=== PATIENT | female | born 1985 | race Caucasian/White ===

== ENCOUNTER 2017-02-11 10:24 | Emergency (ER) | payer OTHER ==
[~2017-02-11] VITALS: Ht 160 cm; Wt 50.0 kg
[~2017-02-11 10:24] MED LIST: ALPR0.5T8 PO; CARI350T PO; HYDR-4003 PO; KLO1T PO; TOPI50TA88 PO; antidepressant
[2017-02-11 10:30] VITALS: BP 108/83; PULSE 107; RESP 16; O2SAT 98
--- NOTE | 2017-02-11 11:24 | ED.REPORT ---
HPI-Extremity Problem Lower Date of Service Feb 11, 2017 ED Provider: Lucia Us History of Present Illness: need pillow and a blanket per her request. problems with left knee for a month. fall on buttocks in bedroom yesterday from standing position, carpeted floor. primary care is residency clinic. started using crutches 2 days ago for knee issues. hx of back and pelvis pain. uses naprosyn and a ticture. 03/05. pelvis area is painful Nursing Notes Stated Complaint: LOWER BACK/LT SIDE LEG PAIN Chief Complaint: Extremity Trauma Nursing Notes Reviewed: Yes Allergies: Coded Allergies: Sulfa (Sulfonamide Antibiotics) (Verified Allergy, Severe, yeast infection , 12/04/14) avocado (Verified Allergy, Severe, valdez esophagus, 12/04/14) gabapentin (Verified Allergy, Severe, blurry vision, 12/04/14) ketorolac (Verified Allergy, Severe, makes her crazy and freak out, ) latex (Verified Allergy, Severe, states valdez like batter acid, 12/04/14) promethazine HCl (Verified Allergy, Severe, anxiety, 12/04/14) azithromycin (Verified Allergy, Mild, GI INTOLERANCE WITH PO DOSING, ) Penicillins (Verified Allergy, Unknown, rash, 12/04/14) erythromycin ethylsuccinate (Verified Allergy, Unknown, UNKNOWN, 12/04/14) ondansetron (Verified Adverse Reaction, Intermediate, MAKES ME UNEASY, WANT TO FREAK OUT, 02/11/17) Uncoded Allergies: Nonsteroidal Anti-Inflammatory Agts (Allergy, Unknown, UNKNOWN, 02/01/13) Scheduled Topiramate (Topiramate) 50 Mg Tablet 150 MG PO DAILY Scheduled PRN Alprazolam (Alprazolam) 0.5 Mg Tablet 0.5 MG PO TID PRN PRN For Anxiety Carisoprodol (Soma) 350 Mg Tablet 350 MG PO TID PRN PRN For Spasm Clonazepam (Clonazepam) 1 Mg Tab 1-2 MG PO BID PRN PRN For Anxiety Hydrocodone-Acetaminophen 5-325 mg (Hydrocodone-Acetaminophen 5-325 mg) 1 Each Tablet 1-2 TABLET PO TID PRN PRN For Pain Miscellaneous Medications ([antidepressant]) General Time Seen by MD: 11:22 Chief Complaint Other (pelvis pain) Hx Obtained From: Patient Onset Occurred: Yesterday Symptom Duration: Since onset Caused by: Accidental Past Medical History Past Medical History Notes: Chronic pain Past Medical History Grave's Disease no clear GI diagnoses (IBS or Crohn's) Anxiety Hypoglycemic cervical dysplasia heart murmur Reports: Transient ischemic attack Past Surgical History colonoscopy, hernia times 3, 2 laps, shoulder Reports: Appendectomy, (times 2), Hysterectomy, Tonsillectomy Family History noncontributory Smoking History Current Every Day Smoker (1/2 pack a day for 15 years) Social History Alcohol Use: "Social" Drug Use: Denies drug use Other Social History: Good social support, , Lives with children, Local resident 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 Ambulatory Status Independent Review of Systems Basic Review of Systems Eyes: Vision NL, No discharge : No dysuria, No frequency Psychiatric: Normal thought content Physical Exam Initial Vital Signs Vital Signs (First) Date Time Temp Pulse Resp B/P Pulse Ox O2 Delivery O2 Flow Rate FiO2 02/11/17 10:30 36.4 107 16 108/83 98 Room Air Initial VS: Reviewed, Vital signs normal General/Constitutional: Well-developed, Well-nourished Head / Eyes: Atraumatic, Normocephalic, PERRL ENT: Mucous membranes moist, Conjunctiva normal, No scleral icterus Neck: Supple, Non-tender, Full range of motion Respiratory: Breath sounds normal, Clear to auscultation, No respiratory distress Cardiovascular: Regular rate & rhythm, Heart sounds normal, Intact distal pulses Abdomen / GI: Soft, Non-tender, No guarding, No rebound, No distention Back: No CVA tenderness Lymphatic: No lymphadenopathy Upper Extremities: Vascular intact, Neuro intact, No swelling, No tenderness Skin: Warm, Dry, No cyanosis Neurologic: Alert, Oriented, Nonfocal Psychiatric: Mood/affect normal, Behavior normal, Normal thought content Lower Extremity / Pelvis / MS: Atraumatic, Inspection NL patient with hypersensitive response to light touch. Left knee with mild swelling and color changes usually associated with no movement General/Constitutional: Awake, Alert, No acute distress, Well appearing, Well developed, Well hydrated, Well nourished, Cooperative, Not toxic appearing Respiratory / Chest: Atraumatic, Breath sounds NL, Breath sounds = bilat, No respiratory distress Cardiovascular: Heart rate NL, Regular rhythm, Heart sounds NL, No gallop Interpretation & Diagnostics X-Ray Interpretation Xray Interpretation: PROCEDURE: X-RAY SACRUM AND COCCYX, MINIMUM THREE VIEWS ([id number]) INDICATIONS: fall pain TECHNIQUE: 3 views of the sacrum and coccyx acquired. COMPARISON: None. FINDINGS: Bones: No fractures or dislocations. No suspicious bony lesions. Lower lumbar discogenic changes. Soft tissues: Visualized bowel gas pattern is normal. No suspicious soft tissue densities. IMPRESSION: No fracture Dictated by: Jeronimo Christina M.D. on 02/11/2017 at 12:25 Approved by: Jeronimo Christina M.D. on 02/11/2017 at 12:28 US Soft Tissue/Musculoskeletal US is negative for any clot formation Re-Eval/Medical Decision Med Decision/Clinical Course 31 year old female presents for coccyx pain, left hip/back pain and left knee pain. Patient states the knee has been bothersome for a month with worsening of her symptoms to the paint where she started using crutches 2 days ago. She sustained a ground level fall to her buttocks yesterday in her carpeted bedroom. She presents today with hypersensitive pain response. X-ray is negative for any fracture, ultrasound is negative for any clot formation. No sign of any compartment syndrome. Discharge & Departure Impression: Primary Impression: Back pain Back pain location: low back pain Sciatica presence: with sciatica Sciatica laterality: sciatica of left side Additional Impression: Knee pain Disposition: Home Patient Instructions: Back Pain (ED), Knee Pain (ED) Additional Instructions: The x-ray of your coccyx is negative. No sign of any fracture. The Ultrasound of your leg is negative. No sign of any clot formation. Please establish in primary care. You can be seen at the residency clinic and see someone different. Movement is so important. Please follow with ortho for your knee and you pelvis. Use hydrocodone 10/325 1 up to 2 times a day as needed for pain Maximun of 2 a day. # 10 Use visteral to help relax muscles. Please call ortho for a follow up appointment. CAll Dr. Rizvi for a follow up appointment. The ER does not refill pain medication. If you feel you need a refill, you will need to be seen in primary care. Referrals: [facility] Artis Rizvi MD EDSupervising Provider for APC: Guy Young MD copies to: [facility]; Artis Rizvi MD, Sue ARNP Feb 11, 2017 11:24
[2017-02-11] MEDS ORDERED: LORazepam 2 mg Tablet PO ONE (11:45)
[2017-02-11] MEDS ORDERED: HYDROcodone-APAP 10-325 mg PO ONE (11:45)
--- NOTE | 2017-02-11 12:31 | DRSVH ---
PROCEDURE: X-RAY SACRUM AND COCCYX, MINIMUM THREE VIEWS ([id number]) INDICATIONS: fall pain TECHNIQUE: 3 views of the sacrum and coccyx acquired. COMPARISON: None. FINDINGS: Bones: No fractures or dislocations. No suspicious bony lesions. Lower lumbar discogenic changes. Soft tissues: Visualized bowel gas pattern is normal. No suspicious soft tissue densities. IMPRESSION: No fracture Dictated by: Jeronimo Christina M.D. on 02/11/2017 at 12:25 Approved by: Jeronimo Christina M.D. on 02/11/2017 at 12:28
[2017-02-11 13:42] VITALS: BP 106/68; PULSE 68; RESP 14; O2SAT 97
--- NOTE | 2017-02-11 14:30 | DRSVH ---
PROCEDURE: US VEINOUS LEG DUPLEX UNILATERAL, LEFT INDICATIONS: pain and different colors TECHNIQUE: Real-time imaging, as well as color and pulse Doppler interrogation, were performed of the lower extr emity deep veins from the inguinal ligament to the popliteal fossa. COMPARISON: None. FINDINGS: The deep veins are normally compressible, and free of intraluminal thrombus. Color and pu lse Doppler demonstrate normal phasic intraluminal flow. There is normal augmentation response to di stal compression maneuver. IMPRESSION: No DVT in the left lower extremity. Dictated by: Colby Hidalgo M.D. on 02/11/2017 at 14:28 Approved by: Colby Hidalgo M.D. on 02/11/2017 at 14:28
== END 2017-02-11 13:43 | disposition home or self-care (01) ==
LOC: SED 10:24
DX: M54.42 Lumbago with sciatica, left side (principal); M25.562 Pain in left knee; W18.39XA Other fall on same level, initial encounter; Y92.003 Bedroom of unspecified non-institutional (private) residence as the place of occurrence of the external cause; Y93.89 Activity, other specified; Y99.8 Other external cause status; F17.200 Nicotine dependence, unspecified, uncomplicated; Z88.0 Allergy status to penicillin; Z88.1 Allergy status to other antibiotic agents; Z88.2 Allergy status to sulfonamides; Z88.8 Allergy status to other drugs, medicaments and biological substances; Z91.040 Latex allergy status; Z91.018 Allergy to other foods; Z90.710 Acquired absence of both cervix and uterus